=== PATIENT | male | born 1975 | race Caucasian/White ===

== ENCOUNTER → 2017-07-03 | Outpatient (CLI) | payer OTHER ==
--- NOTE | 2017-07-03 14:38 | USB ---
Reason for exam: clinical finding. Indicated problem(s): lump or thickening in the left breast. Physical Findings: Nurse Summary: Left breast prominant area posterior nipple, larger size left breast noted with exam (nurse ts). US Breast BILAT Left breast ultrasound includes all four quadrants, the retroareolar region and axilla. Finding demonstrate a 2.0cm irregular, hypoechoic lesion posterior nipple. Right breast ultrasound includes all four quadrants, the retroareolar region and axilla. Finding demonstrate no cystic or solid lesion seen. These results were verbally communicated with the patient and result sheet given to the patient on 07/03/17. ASSESSMENT: Incomplete: need additional imaging evaluation, BI-RAD 0 RECOMMENDATION: Follow-up diagnostic mammogram of both breasts.
--- NOTE | 2017-07-06 11:56 | MM ---
Reason for exam: clinical finding. Indicated problem(s): palpable abnormality in the left breast. MG 3D Diag Mammo W/Cad JOE Bilateral CC and MLO view(s) were taken. There are scattered fibroglandular densities. Asymmetric breast tissue, flame shaped left subaerolar level, strongly favor asymmetric left gynecomastia. These results were verbally communicated with the patient and result sheet given to the patient on 07/03/17. ASSESSMENT: Probably benign, BI-RAD 3 RECOMMENDATION: Surgical consultation of the left breast. Manage patient on a clinical basis. Called with mammographic findings and has scheduled an appointment for the patient for 07/06/17 at 10:[address] Leonard. PRELIMINARY REPORT CALLED AND FAXED TO DR. LEONARD ON 07/03/17. AT 300/TMP. MTDD
== END ==
LOC: RADUSWWP 10:18
PROVIDERS: ATTEND Family Medicine
DX: N63 Unspecified lump in breast (principal)
CPT/HCPCS: 76641; G0204; G0279

== ENCOUNTER → 2017-12-15 | Outpatient (CLI) | payer BC ==
--- NOTE | 2017-12-15 13:22 | ECHOF ---
Referral Reason:I51.7 enlarged heart MEASUREMENTS -------- HEIGHT: 162.6 cm WEIGHT: 144.2 kg BP: RVIDd: 3.9 cm (< 3.3) IVSd: 1.4 cm (0.6 - 1.1) LVIDd: 3.7 cm (3.9 - 5.3) LVPWd: 1.3 cm (0.6 - 1.1) IVSs: 1.8 cm LVIDs: 3.4 cm LVPWs: 1.3 cm Ao Diam: 3.7 cm (2.0 - 3.7) AV Cusp: 2.3 cm (1.5 - 2.6) LA Diam: 3.4 cm (2.7 - 3.8) MV EXCURSION: 23.427 mm (> 18.000) MV EF SLOPE: 148 mm/s (70 - 150) EPSS: 0.4 cm MV E Vladimir: 0.49 m/s MV DecT: 205 ms MV A Vladimir: 0.45 m/s MV E/A Ratio: 1.10 RAP: 5.00 mmHg RVSP: 26.36 mmHg FINDINGS -------- Sinus rhythm. This was a technically adequate study. The left ventricular size is normal. There is mild concentric left ventricular hypertrophy. Overa ll left ventricular systolic function is low-normal with, an EF between 50 - 55 %. The right ventricle is moderately enlarged. The left atrial size is normal. The right atrial size is normal. There is mild aortic valve sclerosis. There is no evidence of aortic regurgitation. Mild mitral annular calcification present. Mild mitral regurgitation is present. Mild tricuspid regurgitation present. There is no evidence of pulmonary hypertension. The right v entricular systolic pressure, as measured by Doppler, is 26.36mmHg. There is no pulmonic regurgitation present. The aortic root size is normal. There is no pericardial effusion. CONCLUSIONS -------- 1. The left ventricular size is normal. 2. There is mild concentric left ventricular hypertrophy. 3. Overall left ventricular systolic function is low-normal with, an EF between 50 - 55 %. 4. There is mild aortic valve sclerosis. 5. Mild mitral annular calcification present. 6. Mild mitral regurgitation is present. 7. Mild tricuspid regurgitation present. 8. There is no evidence of pulmonary hypertension. 9. The right ventricular systolic pressure, as measured by Doppler, is 26.36mmHg. 10. There is no pulmonic regurgitation present. 11. The aortic root size is normal. 12. There is no pericardial effusion. FL[employer] COMM[employer]ICATIONS OFFICER: Margaret Simmons RDCS
== END | disposition home or self-care (01) ==
LOC: RADECHMAIN 11:29
PROVIDERS: ATTEND Family Medicine
DX: I08.1 Rheumatic disorders of both mitral and tricuspid valves (principal)
CPT/HCPCS: 93306

== ENCOUNTER → 2020-12-24 | Outpatient (CLI) | payer BC ==
--- NOTE | 2020-12-24 17:15 | MR ---
EXAMINATION TYPE: MR pituitary wo/w con DATE OF EXAM: 12/24/2020 COMPARISON: 10/13/2013 HISTORY: 45-year-old male D35.2, Benign pituitary tumor Technique: Multiplanar, multisequence images of the sella were obtained before and after administrati on of 13 mL intravenous Gadavist gadolinium contrast. FINDINGS: There is redemonstrated asymmetry to the sella turcica with a larger right sphenoid sinus and seconda ry smaller size to the right half of the sella and larger left half of the sella. This gives a leftwa rd downsloping appearance on coronal series. A T2 hyperintense, hypoenhancing area is redemonstrated along the left lateral third of the sella. Th is measures 8 mm wide by 9 mm craniocaudal by 11 mm AP (versus 8 x 10 x 12 mm on 10/13/2013). The pituitary stalk is seen enhancing with contrast and with slight rightward deviation, unchanged fr om prior. The optic chiasm and anterior third ventricle are well visualized and not displaced or compressed tanesha ges appear that the supraclinoid right ICA about the undersurface of the right optic nerve prior to t he chiasm, refer to coronal T2 image 8. This appearance is unchanged from prior exam. IMPRESSION: 1. Stable asymmetry to the sella turcica due to a larger right sphenoid sinus causing the right half of the sella turcica to be smaller. Anatomic asymmetry causes the supraclinoid segment of the right I CA to abut the undersurface of the right optic nerve prior to the optic chiasm, stable appearance as compared to prior exam. 2. Stable T2 hyperintense and hypoenhancing lesion along the left lateral third of the sella turcica measuring 11 x 9 x 8 mm (versus 12 x 10 x 8 mm on 10/13/2013, not significantly changed). 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
== END ==
LOC: RADMRIMAIN 12:00
PROVIDERS: ATTEND Internal Medicine
DX: D35.2 Benign neoplasm of pituitary gland (principal)
CPT/HCPCS: 70553; A9585

== ENCOUNTER → 2023-08-26 | Outpatient (CLI) | payer BC ==
--- NOTE | 2023-08-26 12:27 | MR ---
EXAMINATION TYPE: MR knee LT wo con DATE OF EXAM: 08/26/2023 COMPARISON: None HISTORY: no prior , left knee pain TECHNIQUE: Multiplanar, multisequence imaging of the left knee is performed without IV contrast. FINDINGS: MEDIAL MENISCUS: There is abnormal grade 3 signal involving the posterior horn and body of the medial meniscus compatible with tear LATERAL MENISCUS: Anterior and posterior horns are intact without tear. CRUCIATE LIGAMENTS: The anterior and posterior cruciate ligaments are intact and unremarkable. COLLATERAL LIGAMENTS: There is increased fluid surrounding the MCL compatible with a grade 1 sprain. EXTENSOR MECHANISM: Visualized quadriceps and patellar tendons are intact. EFFUSION: There is a small suprapatellar joint effusion. POPLITEAL CYST: No popliteal/darby cyst. TRICOMPARTMENT SPACES: There is no erosive changes. Mild joint space narrowing of the medial compartm ent of the knee. CARTILAGE: Maintained. BONE MARROW SIGNAL: Marrow signal noted involving the medial tibia adjacent to the suspected meniscal tear likely reactive marrow edema. OTHER: There is prepatellar soft tissue edema. There is soft tissue varices. IMPRESSION: 1. Posterior horn and body medial meniscal tear with adjacent reactive marrow edema involving the tib ia. 2. Grade 1 MCL sprain
== END | disposition home or self-care (01) ==
LOC: RADMRIMAIN 10:32
PROVIDERS: ATTEND Internal Medicine
DX: S83.242A Other tear of medial meniscus, current injury, left knee, initial encounter (principal); S83.412A Sprain of medial collateral ligament of left knee, initial encounter

== ENCOUNTER → 2023-11-11 | Day surgery (SDC) | payer BC ==
--- NOTE | 2023-11-10 12:08 | HP ---
HISTORY AND PHYSICAL DATE OF SURGERY: 11/11/2023. HISTORY OF PRESENT ILLNESS: Masood Cantor is a 47-year-old gentleman seen with progressive left knee pain. We discussed options for treatment. He elected to proceed with left knee arthroscopy. Consent was obtained. PAST MEDICAL HISTORY: Noncontributory. PAST SURGICAL HISTORY: Right ankle surgery. DAILY MEDICATIONS: Testosterone. ALLERGIES: None. SOCIAL HISTORY: Denies tobacco use. PHYSICAL EVALUATION OF THE LEFT KNEE: His range of motion is 0 to 120 degrees. There is a mild effusion. Tenderness, medial joint line. Positive medial Aidee's. Ligaments stable. Hip rotation without pain. Distal neurovascular exam is intact. IMAGING STUDIES: Left knee radiographs revealed an effusion. MRI of left knee revealed medial meniscal tear. IMPRESSION: Internal derangement of left knee with medial meniscal tear. PLAN: Left knee arthroscopy with partial medial meniscectomy and debridement. MMODL / IJN: [id number] /
[~2023-11-11] MED LIST: BUPIVACAINE (PF) 0.25% 30 ML VIAL SQ ONE; DEXAMETHASONE SOD PHOSPHATE 4 MG/ML 1 ML VIAL IV ONE; HYDROmorphone (PF) 1 MG/ML ONE; HYDROmorphone 0.5 MG/0.5 ML SYRINGE IVP PRN; LACTATED RINGERS 1,000 ML IV SCH; LIDOCAINE 1% INJ 10MG/ML (20 ML MDV) ONE; MIDAZOLAM 2 MG/2 ML VIAL ONE; ONDANSETRON 4 MG/2 ML VIAL IVP ONE; PROPOFOL 10 MG/ML 20 ML VIAL IV ONE; SUCCINYLCHOLINE CHLORIDE 200 MG/10 ML VIAL IV ONE; ceFAZolin 3 GM in SODIUM CHLORIDE 0.9% 100 ML IVPB PRN; fentaNYL (PF) 50 MCG/ML 2 ML AMP ONE
[2023-11-11 10:06] LABS: Basophils % (A) 0 %; Eosinophils # (A) 0.2 k/uL (0-0.7); Eosinophils % (A) 3 %; HCT 47.3 % (39.0-53.0); HGB 16.1 gm/dL (13.0-17.5); Lymphocytes # (A) 1.1 k/uL (1.0-4.8); Lymphocytes % (A) 18 %; MCH 32.1 pg (25.0-35.0); MCHC 34.1 g/dL (31.0-37.0); MCV 94.1 fL (80.0-100.0); Mean Platelet Volume 8.1; Monocytes # (A) 0.4 k/uL (0-1.0); Monocytes % (A) 7 %; Neutrophils # (A) 4.1 k/uL (1.3-7.7); Neutrophils % (A) 69 %; Platelet Count 188 k/uL (150-450); RBC 5.02 m/uL (4.30-5.90); RDW 12.9 % (11.5-15.5); WBC 5.9 k/uL (3.8-10.6)
[2023-11-11 10:17] LABS: ALT 39 U/L (4-49); African American GFR (CKD) >90 (>60 ml/min/1.73 sqM); Albumin 3.8 g/dL (3.5-5.0); Blood Urea Nitrogen 16 mg/dL (9-20); Calcium 9.2 mg/dL (8.4-10.2); Carbon Dioxide 25 mmol/L (22-30); Glucose 97 mg/dL (74-99); Non-African American GFR(CKD) >90 (>60 ml/min/1.73 sqM); Potassium 3.9 mmol/L (3.5-5.1); Total Bilirubin 0.9 mg/dL (0.2-1.3); Total Protein 6.5 g/dL (6.3-8.2)
--- NOTE | 2023-11-11 11:24 | P.OP ---
Date of Procedure: 11/11/23 Preoperative Diagnosis: Internal derangement left knee Postoperative Diagnosis: 1. Tear medial meniscus left knee 2. Reactive synovitis medial, lateral and suprapatellar compartments left knee Procedure(s) Performed: 1. Arthroscopic partial medial meniscectomy left knee 2. Arthroscopic partial synovectomy medial, lateral and suprapatellar compartments left knee Anesthesia: YENIA, local Surgeon: Dany Hunter Estimated Blood Loss (ml): 6 Pathology: none sent Condition: stable Disposition: PACU Indications for Procedure: 47-year-old patient who was seen with progressive left knee pain. After treatment options were discussed, he elected to proceed with arthroscopy. Operative Findings: see description of procedure Description of Procedure: Patient was taken to the operative suite. Patient underwent a general ane sthetic by the department of anesthesia. Patient was given preoperative antibiotics. The left lower extremity was placed in a well-padded arthroscopic leg orosco. The left leg was prepped and draped in the normal sterile orthopedic fashion. A lateral parapatellar and suprapatellar incision was made. Trochars were inserted. Arthroscopy was initiated. Suprapatellar pouch revealed diffuse thick reactive synovitis. The patellofemoral joint appeared to articulate congruently. There was grade 1 chondromalacia of the patellofemoral joint without significant tears. The scope was guided into the medial gutter. No loose bodies or plica were identified. The scope was then guided into the medial compartment. A medial parapatellar incision was made. Trocar inserted followed by probe. There was a complex tear involving the posterior horn and midbody of the medial meniscus. There were grade 1 chondromalacia changes along the medial femoral condyle. There were grade 2/3 chondromalacia changes along the posterior medial tibial plateau with no tears. There was thick reactive synovitis anteriorly. I performed a partial medial meniscectomy down to stable meniscal tissue. I performed a partial synovectomy decompressing the reactive synovitis. The residual meniscus was stable. There was good decompression of the synovitis. Scope and probe were then guided into the intercondylar notch. Cruciates were identified, probed and found to be stable. The scope and probe were then guided into lateral compartment. the lateral meniscus was probed and was found to be stable. There was reactive synovitis anteriorly. I introduced a motorized shaver and I performed a partial synovectomy lateral compartment. The shaver was now removed. There was good decompression of synovitis. There was no chondromalacia present. The scope was in guided back into the suprapatellar compartment. I introduced a motorized shaver into the suprapatellar compartment. I debrided some piecemeal fragments of meniscus I encountered. I performed a partial synovectomy. The shaver was removed. There was good decompression of the synovitis. I took one more look around the entire knee, no residual debris. Instruments were now removed from the joint. The joint was infiltrated with .25% Marcaine. Steri-Strips were applied to the portal sites. Sterile dressings were applied. The patient was placed into a YAMILET hose. No tourniquet was utilized. The patient was awakened, transferred to a bed and taken to recovery stable satisfactory condition.
[2023-11-11 11:47] VITALS: RESP 16; TEMP 96.9
[2023-11-11 11:47] LABS: AST 34 U/L (17-59); Alkaline Phosphatase 74 U/L (38-126); Anion Gap 6 mmol/L; Chloride 108 mmol/L (98-107); Sodium 139 mmol/L (137-145)
[2023-11-11 12:59] VITALS: BP 129/85; PULSE 87
== END | disposition home or self-care (01) ==
LOC: OR 08:41
PROVIDERS: ATTEND Orthopaedic Surgery
DX: S83.242A Other tear of medial meniscus, current injury, left knee, initial encounter (principal); M65.162 Other infective (teno)synovitis, left knee; Z79.899 Other long term (current) drug therapy; Z96.661 Presence of right artificial ankle joint; X58.XXXA Exposure to other specified factors, initial encounter
CPT/HCPCS: 80053; 85025; 29881; J2250; J0330; J1100; J0690; J2405; J2001; J3010; J1170; J2704; J0665